=== PATIENT | male | born 1965 | race Caucasian/White ===

== ENCOUNTER 2016-06-02 09:16 | Emergency (ER) | payer MEDICAID ==
[~2016-06-02] VITALS: Ht 175.3 cm; Wt 81.8 kg
[2016-06-02 10:00] VITALS: BP 123/82
[2016-06-02] MEDS ORDERED: GENTAMICIN SULFATE 0.3% 3.5 GM OPHTHALMIC OINTMENT OD ONE (10:15)
[2016-06-02] MEDS ORDERED: GENTAMICIN SULFATE 0.3% OPHTHALMIC SOLUTION 5 ML OD ONE (10:15)
== END 2016-06-02 10:53 | disposition home or self-care (01) ==
LOC: EMS 09:17
DX: H10.89 Other conjunctivitis (principal); B99.9 Unspecified infectious disease
CPT/HCPCS: 99283

== ENCOUNTER 2016-09-15 05:15 | Emergency (ER) | payer MEDICAID ==
[~2016-09-15] VITALS: Ht 175.3 cm; Wt 81.0 kg
[2016-09-15 06:51] VITALS: BP 124/68
== END 2016-09-15 07:02 | disposition home or self-care (01) ==
LOC: EMS 05:16
DX: L03.115 Cellulitis of right lower limb (principal); F17.210 Nicotine dependence, cigarettes, uncomplicated
CPT/HCPCS: 99284